=== PATIENT | male | born 1990 | race African-American/Black ===

== ENCOUNTER 2017-01-09 19:24 | Emergency (ER) | payer SELFPAY ==
[~2017-01-09 19:24] MED LIST: AMOXICILLIN500 M2 PO; AMOXICILLIN875 MG PO; AUGMENTIN875 MG/TA1 PO; CATAFLAM50 M1 PO; HYDROCODON-ACE1 EA16 PO; KEFLEX500 MG PO; MUCUS RELIEF600 MG PO; NO HOME MEDICATION XX; NORCO 5-325 TA1 EACH PO; NORCO 5/325 TAB1 TAB PO; OTC SINUS MED; PREDNISONE20 M1 PO; PROVENTIL HFA6.7 G1 IH; THERAFLU FLU &1 EAC1 PO; no home meds
[2017-01-09] MEDS ORDERED: NORCO 5-325 TA1 EACH PO (20:40)
[2017-01-09] MEDS ORDERED: CYCLOBENZAPRINE5 M1 PO (20:40)
== END 2017-01-09 21:36 ==
LOC: EDMED 19:24
DX: M25.512 Pain in left shoulder (principal); F17.200 Nicotine dependence, unspecified, uncomplicated; V49.40XA Driver injured in collision with unspecified motor vehicles in traffic accident, initial encounter